=== PATIENT | male | born 1980 | race Caucasian/White ===

== ENCOUNTER 2021-05-15 10:00 | Inpatient (IN) | payer BC ==
[~2021-05-15] VITALS: Ht 172.7 cm; Wt 77.8 kg
[2021-05-15 11:00] VITALS: BP 131/93
[2021-05-15 11:23] LABS: BASO % 0.4 % (0.0-1.0); EOS # 0.3 10*3/uL (0.0-0.4); EOS % 3.9 % (1.0-4.0); HEMATOCRIT 47.2 % (42.0-52.0); LYMPH # 1.7 10*3/uL (1.3-4.4); LYMPH % 22.8 % (27.0-41.0); MEAN CELL VOLUME 87.2 fl (80.0-94.0); MEAN CORPUSCULAR HGB 31.2 pg (27.0-31.0); MEAN CORPUSCULAR HGB CONC 35.8 g/dl (33.0-37.0); MONO # 0.6 10*3/uL (0.1-1.0); MONO % 7.7 % (3.0-9.0); NEUT # 4.8 10*3/uL (2.3-7.9); NEUT % 65.1 % (47.0-73.0); PLATELET COUNT AUTOMATED 330 10*3/uL (130-400); RED BLOOD COUNT 5.41 10*6/uL (4.50-5.90); RED CELL DISTRI WIDTH 13.7 % (0-14.5); WHITE BLOOD COUNT 7.4 10*3/uL (4.8-10.8)
[2021-05-15] MEDS ORDERED: Bromocriptine2.5 MG PO (11:36)
[2021-05-15] MEDS ORDERED: ATARAX,VISTARIL50 MG PO (11:37)
[2021-05-15] MEDS ORDERED: SEROQUEL100 MG PO (11:38)
[2021-05-15] MEDS ORDERED: ACAMPROSATE CA333 M1 PO (11:38)
[2021-05-15 11:39] LABS: ALKALINE PHOSPHATASE 101 U/L (45-117); BUN 10 mg/dl (7-24); CHLORIDE 105 mmol/L (98-107); CREATININE 1.18 mg/dL (0.70-1.30); POTASSIUM 3.8 mmol/L (3.5-5.1); SGOT/AST 28 IU/L (3-35); SGPT/ALT 39 U/L (12-78); SODIUM 137 mmol/L (136-145); TOTAL PROTEIN 6.8 gm/dL (6.4-8.2)
[2021-05-15] MEDS ORDERED: PROPRANOLOL HCL40 M1 PO (11:39)
[2021-05-15] MEDS ORDERED: CITALOPRAM40 MG PO (11:40)
[2021-05-15] MEDS ORDERED: ABILIFY5 MG PO (11:40)
[2021-05-15] MEDS ORDERED: OMEPRAZOLE40 MG PO (11:41)
[2021-05-15 11:45] LABS: ETHYL ALCOHOL < 3.0 mg/dl (<3)
[2021-05-15 13:00] LABS: BILIRUBIN Negative (Negative); BLOOD Negative (Negative); CLARITY Clear (Clear); COLOR Dark Yellow (Yellow); GLUCOSE Negative (Negative); KETONE Trace (Negative); LEUKO ESTERASE Trace (Negative); NITRITE Negative (Negative); PH 7.5 (4.5-8.0); SPECIFIC GRAVITY 1.025 (1.001-1.030)
[2021-05-15 13:07] LABS: MUCOUS 3+; URINE AMPHETAMINES < 1000 (1000ng/ml); URINE BARBITURATES < 200 (200ng/ml); URINE BENZODIAZEPINES < 200 (200ng/ml); URINE CANNABINOIDS (THC) > 50 (50ng/ml); URINE COCAINE > 300 (300ng/ml); URINE METHADONE < 300 (300ng/ml); URINE OPIATES < 300 (300ng/ml)
[2021-05-15 13:11] LABS: URINE PHENCYCLIDINE < 25 (25ng/ml)
[2021-05-15 16:00] VITALS: BP 142/84
[2021-05-15 20:00] VITALS: BP 115/80
[2021-05-16] VITALS: BP 120/81
[2021-05-16 04:00] VITALS: BP 118/72
[2021-05-16 08:00] VITALS: BP 114/68
[2021-05-16 12:00] VITALS: BP 107/66
[2021-05-16 16:00] VITALS: BP 113/69
[2021-05-16 20:00] VITALS: BP 115/66
[2021-05-17] VITALS: BP 112/62
[2021-05-17 08:00] VITALS: BP 94/51
[2021-05-17 09:00] VITALS: BP 112/72
[2021-05-17 16:00] VITALS: BP 105/53
[2021-05-17 20:00] VITALS: BP 115/67
[2021-05-18] VITALS: BP 99/59
[2021-05-18 08:00] VITALS: BP 106/70
[2021-05-18 12:00] VITALS: BP 115/84
[2021-05-18 16:00] VITALS: BP 117/64
[2021-05-18 20:00] VITALS: BP 108/60
[2021-05-19] VITALS: BP 112/70
[2021-05-19 08:00] VITALS: BP 111/65
== END 2021-05-19 11:49 | disposition home or self-care (01) | DRG 897 ==
LOC: 5E 10:00
PROVIDERS: Registered Nurse; ADMIT Family Medicine; ATTEND Family Medicine
DX: F10.239 Alcohol dependence with withdrawal, unspecified (principal); F17.210 Nicotine dependence, cigarettes, uncomplicated; F41.9 Anxiety disorder, unspecified; K21.9 Gastro-esophageal reflux disease without esophagitis; Z79.899 Other long term (current) drug therapy; Z71.6 Tobacco abuse counseling

== ENCOUNTER 2022-05-06 09:51 | Inpatient (IN) | payer OTHER ==
[~2022-05-06] VITALS: Ht 172.7 cm; Wt 74.0 kg
[~2022-05-06 09:51] MED LIST: ABILIFY5 MG PO; ACAMPROSATE CA333 M1 PO; ATARAX,VISTARIL50 MG PO; Bromocriptine2.5 MG PO; CITALOPRAM40 MG PO; OMEPRAZOLE40 MG PO; PROPRANOLOL HCL40 M1 PO; SEROQUEL100 MG PO
[2022-05-06 10:11] VITALS: BP 127/83
[2022-05-06 11:42] LABS: BASO # 0.1 10*3/uL (0.0-0.1); BASO % 0.5 % (0.0-1.0); EOS # 0.5 10*3/uL (0.0-0.4); EOS % 4.1 % (1.0-4.0); HEMATOCRIT 54.7 % (42.0-52.0); LYMPH # 2.7 10*3/uL (1.3-4.4); LYMPH % 24.4 % (27.0-41.0); MEAN CELL VOLUME 89.1 fl (80.0-94.0); MEAN CORPUSCULAR HGB 30.9 pg (27.0-31.0); MEAN CORPUSCULAR HGB CONC 34.7 g/dl (33.0-37.0); MEAN PLATELET VOLUME 9.3 fl (9.6-12.3); MONO # 0.9 10*3/uL (0.1-1.0); MONO % 8.2 % (3.0-9.0); NEUT # 6.9 10*3/uL (2.3-7.9); NEUT % 62.4 % (47.0-73.0); PLATELET COUNT AUTOMATED 305 10*3/uL (130-400); RED BLOOD COUNT 6.14 10*6/uL (4.50-5.90); RED CELL DISTRI WIDTH 13.3 % (0-14.5); WHITE BLOOD COUNT 11.1 10*3/uL (4.8-10.8)
[2022-05-06 12:07] LABS: ALKALINE PHOSPHATASE 78 U/L (46-116); BUN 8 mg/dl (9-23); CHLORIDE 104 mmol/L (98-107); SGPT/ALT 26 U/L (10-49); TOTAL PROTEIN 7.5 gm/dL (6.0-8.0)
[2022-05-06 12:12] LABS: ETHYL ALCOHOL < 3.0 mg/dl (<3)
[2022-05-06 12:30] VITALS: BP 124/76
[2022-05-06 14:10] VITALS: BP 123/82
[2022-05-06 14:49] LABS: BILIRUBIN Negative (Negative); BLOOD Negative (Negative); CLARITY Clear (Clear); COLOR Dark Yellow (Yellow); GLUCOSE Negative (Negative); KETONE Trace (Negative); LEUKO ESTERASE Negative (Negative); NITRITE Negative (Negative); SPECIFIC GRAVITY >= 1.030 (1.001-1.030)
[2022-05-06 14:57] LABS: URINE AMPHETAMINES Positive (1000ng/ml); URINE BARBITURATES Negative (200ng/ml); URINE BENZODIAZEPINES Negative (200ng/ml); URINE CANNABINOIDS (THC) Negative (50ng/ml); URINE COCAINE Positive (300ng/ml); URINE METHADONE Negative (300ng/ml); URINE OPIATES Negative (300ng/ml); URINE PHENCYCLIDINE Negative (25ng/ml)
[2022-05-06 15:07] LABS: MUCOUS 2+; RBC 0-2 rbc/hpf (0-2); WBC 0-2 wbc/hpf (0-5)
[2022-05-06 15:54] VITALS: BP 115/76
[2022-05-06 17:03] VITALS: BP 118/78
[2022-05-07 00:30] VITALS: BP 113/78
[2022-05-07] MEDS ORDERED: LAMOTRIGINE25 M1 PO (00:48)
[2022-05-07] MEDS ORDERED: MIRTAZAPINE15 M2 PO (00:49)
[2022-05-07 08:00] VITALS: BP 117/83
[2022-05-07 12:00] VITALS: BP 91/50
[2022-05-07 16:00] VITALS: BP 113/63
[2022-05-07 20:00] VITALS: BP 109/71
[2022-05-08] VITALS: BP 96/50
[2022-05-08 08:00] VITALS: BP 103/75
[2022-05-08 11:56] VITALS: BP 101/62
[2022-05-08 16:00] VITALS: BP 116/70
[2022-05-08 20:00] VITALS: BP 106/63
== END 2022-05-08 22:25 | disposition left against medical advice (07) | DRG 770 ==
LOC: ED 09:51 → 5E 15:22 → EDHOLD 15:22 → 5E 22:21
PROVIDERS: Emergency Medicine; ADMIT Emergency Medicine; ATTEND Emergency Medicine
DX: F10.239 Alcohol dependence with withdrawal, unspecified (principal); F15.10 Other stimulant abuse, uncomplicated; F14.10 Cocaine abuse, uncomplicated; K21.9 Gastro-esophageal reflux disease without esophagitis; Y90.9 Presence of alcohol in blood, level not specified; F31.9 Bipolar disorder, unspecified; F41.1 Generalized anxiety disorder; F17.210 Nicotine dependence, cigarettes, uncomplicated; Z53.29 Procedure and treatment not carried out because of patient's decision for other reasons; Z79.899 Other long term (current) drug therapy; Z71.3 Dietary counseling and surveillance

== ENCOUNTER 2022-06-07 09:26 | Inpatient (IN) | payer OTHER ==
[~2022-06-07] VITALS: Ht 172.7 cm; Wt 80.0 kg
[~2022-06-07 09:26] MED LIST changes: +LAMOTRIGINE25 M1 PO; +MIRTAZAPINE15 M2 PO
[2022-06-07 09:35] VITALS: BP 133/90
[2022-06-07 10:12] LABS: BASO % 0.5 % (0.0-1.0); EOS # 0.3 10*3/uL (0.0-0.4); EOS % 4.3 % (1.0-4.0); HEMATOCRIT 50.7 % (42.0-52.0); LYMPH # 1.7 10*3/uL (1.3-4.4); LYMPH % 21.1 % (27.0-41.0); MEAN CELL VOLUME 88.5 fl (80.0-94.0); MEAN CORPUSCULAR HGB 31.6 pg (27.0-31.0); MEAN CORPUSCULAR HGB CONC 35.7 g/dl (33.0-37.0); MEAN PLATELET VOLUME 9.6 fl (9.6-12.3); MONO # 0.8 10*3/uL (0.1-1.0); MONO % 10.1 % (3.0-9.0); NEUT % 63.7 % (47.0-73.0); PLATELET COUNT AUTOMATED 337 10*3/uL (130-400); RED BLOOD COUNT 5.73 10*6/uL (4.50-5.90); RED CELL DISTRI WIDTH 13.3 % (0-14.5); WHITE BLOOD COUNT 7.9 10*3/uL (4.8-10.8)
[2022-06-07 10:28] LABS: ACT PARTIAL THROMBO TIME 28.2 SECONDS (20.0-32.1)
[2022-06-07 10:35] LABS: ALKALINE PHOSPHATASE 85 U/L (46-116); BUN 10 mg/dl (9-23); CHLORIDE 105 mmol/L (98-107); POTASSIUM 3.7 mmol/L (3.4-5.1); SGPT/ALT 14 U/L (10-49); TOTAL PROTEIN 7.4 gm/dL (6.0-8.0)
[2022-06-07 10:37] LABS: ETHYL ALCOHOL < 3.0 mg/dl (<3)
[2022-06-07 21:05] VITALS: BP 109/68
[2022-06-07 22:29] LABS: BILIRUBIN 1+ (Negative); BLOOD Negative (Negative); CLARITY Clear (Clear); COLOR Dark Yellow (Yellow); GLUCOSE Negative (Negative); KETONE Trace (Negative); LEUKO ESTERASE Trace (Negative); NITRITE Negative (Negative); PH 5.5 (4.5-8.0); SPECIFIC GRAVITY >= 1.030 (1.001-1.030)
[2022-06-07 22:35] LABS: BACTERIA 1+; MUCOUS 2+; RBC 0-2 rbc/hpf (0-2)
[2022-06-07 22:36] LABS: URINE AMPHETAMINES Positive (1000ng/ml); URINE BARBITURATES Negative (200ng/ml); URINE BENZODIAZEPINES Positive (200ng/ml); URINE CANNABINOIDS (THC) Negative (50ng/ml); URINE COCAINE Positive (300ng/ml); URINE METHADONE Negative (300ng/ml); URINE OPIATES Negative (300ng/ml); URINE PHENCYCLIDINE Negative (25ng/ml)
[2022-06-08 01:35] VITALS: BP 132/67
[2022-06-08 08:00] VITALS: BP 97/71
[2022-06-08 12:00] VITALS: BP 118/67
[2022-06-08 16:00] VITALS: BP 114/71
[2022-06-08 20:00] VITALS: BP 113/66
[2022-06-09] VITALS: BP 116/52
[2022-06-09 08:00] VITALS: BP 110/68
[2022-06-09 12:00] VITALS: BP 118/80
[2022-06-09 16:00] VITALS: BP 136/79
[2022-06-09 20:00] VITALS: BP 120/80
== END 2022-06-09 21:45 | disposition left against medical advice (07) | DRG 770 ==
LOC: ED 09:26 → EDHOLD 10:03 → 5E 20:42
PROVIDERS: Emergency Medicine; ADMIT Student in an Organized Health Care Education/Training Program; ATTEND Student in an Organized Health Care Education/Training Program
DX: F10.230 Alcohol dependence with withdrawal, uncomplicated (principal); Y90.9 Presence of alcohol in blood, level not specified; K21.9 Gastro-esophageal reflux disease without esophagitis; F41.1 Generalized anxiety disorder; F14.13 Cocaine abuse, unspecified with withdrawal; F17.210 Nicotine dependence, cigarettes, uncomplicated; R00.1 Bradycardia, unspecified; R17 Unspecified jaundice; Z53.29 Procedure and treatment not carried out because of patient's decision for other reasons; Z88.8 Allergy status to other drugs, medicaments and biological substances; Z79.899 Other long term (current) drug therapy

== ENCOUNTER 2022-12-15 07:29 | Emergency (ER) | payer OTHER ==
[~2022-12-15] VITALS: Ht 170.1 cm; Wt 86.2 kg
[2022-12-15 08:28] LABS: BASO # 0.1 10*3/uL (0.0-0.1); BASO % 1.1 % (0.0-1.0); EOS # 0.2 10*3/uL (0.0-0.4); EOS % 3.1 % (1.0-4.0); HEMATOCRIT 45.8 % (42.0-52.0); LYMPH % 37.4 % (27.0-41.0); MEAN CORPUSCULAR HGB 33.3 pg (27.0-31.0); MEAN CORPUSCULAR HGB CONC 36.2 g/dl (33.0-37.0); MONO # 0.6 10*3/uL (0.1-1.0); MONO % 11.4 % (3.0-9.0); NEUT # 2.6 10*3/uL (2.3-7.9); NEUT % 46.8 % (47.0-73.0); PLATELET COUNT AUTOMATED 271 10*3/uL (130-400); RED BLOOD COUNT 4.98 10*6/uL (4.50-5.90); RED CELL DISTRI WIDTH 12.5 % (0-14.5); WHITE BLOOD COUNT 5.5 10*3/uL (4.8-10.8)
[2022-12-15 08:50] LABS: ALKALINE PHOSPHATASE 117 U/L (46-116); CHLORIDE 104 mmol/L (98-107); ETHYL ALCOHOL 232.7 mg/dl (<3); LIPASE 35 U/L (12-53); POTASSIUM 3.2 mmol/L (3.4-5.1); SGPT/ALT 61 U/L (5-49); TOTAL PROTEIN 6.9 gm/dL (6.0-8.0)
[2022-12-15 09:00] LABS: BUN < 5 mg/dl (9-23)
[2022-12-15] MEDS ORDERED: THIAMINE HCL100 MG PO (09:52)
[2022-12-15] MEDS ORDERED: FAMOTIDINE40 MG PO (09:52)
== END 2022-12-15 10:21 | disposition home or self-care (01) ==
LOC: ED 07:29
PROVIDERS: Family Medicine
DX: K76.0 Fatty (change of) liver, not elsewhere classified (principal); E87.6 Hypokalemia; F10.129 Alcohol abuse with intoxication, unspecified; F41.9 Anxiety disorder, unspecified; F31.9 Bipolar disorder, unspecified; Z88.8 Allergy status to other drugs, medicaments and biological substances; Z98.890 Other specified postprocedural states; F14.10 Cocaine abuse, uncomplicated; F15.10 Other stimulant abuse, uncomplicated; F17.290 Nicotine dependence, other tobacco product, uncomplicated; Y90.0 Blood alcohol level of less than 20 mg/100 ml

== ENCOUNTER 2023-02-11 01:37 | Emergency (ER) | payer OTHER ==
[~2023-02-11] VITALS: Ht 172.7 cm; Wt 86.2 kg
[~2023-02-11 01:37] MED LIST changes: +FAMOTIDINE40 MG PO; +THIAMINE HCL100 MG PO
[2023-02-12] MEDS ORDERED: Motrin,Rufen800 MG PO ×2 (14:50)
[2023-02-12] MEDS ORDERED: VALTREX500 MG PO ×2 (14:50)
[2023-02-15] MEDS ORDERED: PRILOSEC20 M1 PO (14:55)
== END 2023-02-11 02:19 | disposition home or self-care (01) ==
LOC: ED 01:37
DX: K12.0 Recurrent oral aphthae (principal); F41.9 Anxiety disorder, unspecified; F31.9 Bipolar disorder, unspecified; Z88.8 Allergy status to other drugs, medicaments and biological substances; Z98.890 Other specified postprocedural states; F10.10 Alcohol abuse, uncomplicated; F14.10 Cocaine abuse, uncomplicated; F15.90 Other stimulant use, unspecified, uncomplicated

== ENCOUNTER 2023-02-12 13:10 | Emergency (ER) | payer OTHER ==
[~2023-02-12] VITALS: Ht 172.7 cm; Wt 83.9 kg
[2023-02-12] MEDS ORDERED: Motrin,Rufen800 MG PO ×2 (14:50)
[2023-02-12] MEDS ORDERED: VALTREX500 MG PO ×2 (14:50)
[2023-02-15] MEDS ORDERED: PRILOSEC20 M1 PO (14:55)
== END 2023-02-12 14:52 | disposition home or self-care (01) ==
LOC: ED 13:10
DX: B00.1 Herpesviral vesicular dermatitis (principal); F41.9 Anxiety disorder, unspecified; F31.9 Bipolar disorder, unspecified; Z88.8 Allergy status to other drugs, medicaments and biological substances; Z98.890 Other specified postprocedural states; F10.10 Alcohol abuse, uncomplicated; F14.10 Cocaine abuse, uncomplicated; F15.90 Other stimulant use, unspecified, uncomplicated